=== PATIENT | male | born 1965 | race African-American/Black ===

== ENCOUNTER 2019-08-28 14:30 | Emergency (ER) | payer SELFPAY ==
[2019-08-28] MEDS ORDERED: Fluorescein Opthalmic Strip ONE (14:45)
== END 2019-08-28 15:03 | disposition home or self-care (01) ==
LOC: NAV ERS 14:30
DX: S05.02XA Injury of conjunctiva and corneal abrasion without foreign body, left eye, initial encounter (principal); F17.210 Nicotine dependence, cigarettes, uncomplicated; I10 Essential (primary) hypertension; X58.XXXA Exposure to other specified factors, initial encounter
CPT/HCPCS: 99283